=== PATIENT | female | born 1960 | race African-American/Black ===

== ENCOUNTER 2022-09-04 12:12 | Outpatient (REF) | payer BC, SELFPAY ==
[2022-09-04 14:47] LABS: Estimated Average Glucose 117 mg/dL; Hemoglobin A1c % 5.7 %
== END 2022-09-04 12:13 | disposition home or self-care (01) ==
LOC: HO.HMGCLDS 12:12
PROVIDERS: PCP Internal Medicine; Visit Provider Internal Medicine
DX: R73.09 Other abnormal glucose (principal)
CPT/HCPCS: 36415; 83036

== ENCOUNTER 2022-11-10 13:06 | Outpatient (REF) | payer OTHER, BC, SELFPAY ==
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
== END 2022-11-10 13:07 | disposition home or self-care (01) ==
LOC: HO.HMGCX 13:06
PROVIDERS: PCP Internal Medicine; Visit Provider Internal Medicine
DX: M54.50 Low back pain, unspecified (principal)
CPT/HCPCS: 72100

== ENCOUNTER 2022-11-14 13:11 | Outpatient (REF) | payer OTHER, SELFPAY ==
--- NOTE | ~2022-11-14 | XR_ITS ---
EXAMINATION: XR SHOULDER, LEFT CLINICAL INFORMATION: Pain COMPARISON: None available. TECHNIQUE: AP external rotation, Grashey, scapular Y, and axillary views of the left shoulder. FINDINGS: There is minimal reduction left AC joint space with inferior acromial spurring. The glenohumeral joint space is normal. No visible acute fracture, dislocation or subluxation seen. XR/XR shoulder LT min 2V IMPRESSION: Mild degenerative changes left AC joint with inferior acromial spurring. No visible acute fracture or dislocation seen.
== END 2022-11-14 13:12 | disposition home or self-care (01) ==
LOC: HO.HMGCX 13:11
PROVIDERS: PCP Internal Medicine; Visit Provider Internal Medicine
DX: M25.512 Pain in left shoulder (principal)
CPT/HCPCS: 73030

== ENCOUNTER 2022-12-03 07:50 | Outpatient (REF) | payer BC, SELFPAY ==
[2022-12-03 12:16] LABS: Estimated Average Glucose 108 mg/dL; Hemoglobin A1c % 5.4 %
== END 2022-12-03 07:51 | disposition home or self-care (01) ==
LOC: HO.HMGCLDS 07:50
PROVIDERS: PCP Internal Medicine; Visit Provider Internal Medicine
DX: R73.9 Hyperglycemia, unspecified (principal)
CPT/HCPCS: 36415; 83036

== ENCOUNTER 2022-12-26 08:00 | Outpatient (RCR) | payer OTHER, BC, SELFPAY | END 2022-12-29 07:10 | disposition home or self-care (01) | LOC: HO.PTCHIC 08:00 | PROVIDERS: PCP Internal Medicine; Visit Provider Internal Medicine | DX: M54.50 Low back pain, unspecified (principal) | CPT/HCPCS: 97014; 97110; 97112; 97162 ==

== ENCOUNTER 2023-02-23 08:00 | Outpatient (RCR) | payer OTHER, BC, SELFPAY | END 2023-02-23 14:23 | disposition home or self-care (01) | LOC: HO.PTCHIC 08:00 | PROVIDERS: PCP Internal Medicine; Visit Provider Internal Medicine | DX: M54.50 Low back pain, unspecified (principal) | CPT/HCPCS: 97110; 97162; 97530 ==

== ENCOUNTER 2023-02-26 13:02 | Outpatient (REF) | payer BC, SELFPAY ==
[2023-02-26 16:43] LABS: Blood Urea Nitrogen 19 mg/dL (9-16); Estimated Glomerular Filt Rate > 60; Potassium 3.5 mmol/L (3.3-5.1)
== END 2023-02-26 13:03 | disposition home or self-care (01) ==
LOC: HO.HMGCLDS 13:02
PROVIDERS: PCP Internal Medicine; Visit Provider Internal Medicine
DX: R53.83 Other fatigue (principal); R59.0 Localized enlarged lymph nodes
CPT/HCPCS: 36415; 82565; 84132; 84520

== ENCOUNTER 2023-03-06 09:51 | Outpatient (REF) | payer BC, SELFPAY ==
--- NOTE | ~2023-03-06 | CT_ITS ---
EXAMINATION: CT ABDOMEN AND PELVIS WITH CONTRAST CLINICAL INFORMATION: Enlarged inguinal lymph nodes. COMPARISON: None available. TECHNIQUE: Multidetector volumetric images were obtained from the superior aspect of the liver through the pubic symphysis following administration 85 mL of Omnipaque 350 intravenous contrast. Sagittal and coronal reformatted images were obtained on the technologist's workstation. Oral contrast: Yes This CT examination was performed using dose optimization techniques as appropriate, variously including the following: *Automated exposure control *Adjustment of mA and/or kV according to patient size (this includes techniques or standardized protocols for targeted exams where dose is matched to indication/reason for exam; i.e. extremities or head) *Use of iterative reconstruction technique DLP: 151 mGy-cm FINDINGS: LUNG BASES: The visualized lung bases are unremarkable. LIVER, GALLBLADDER, AND BILIARY TREE: Focal steatosis along the falciform. No biliary ductal dilatation. The gallbladder is unremarkable with no evidence of radiopaque gallstones, gallbladder wall thickening, or obvious pericholecystic inflammatory changes. PANCREAS: No discrete mass. No ductal dilatation. SPLEEN: Normal. ADRENAL GLANDS: No adrenal mass. KIDNEYS AND URETERS: Symmetric nephrograms. 1.1 cm endophytic lower attenuation lesion in the anterior mid right kidney measures 29 Hounsfield units. This is considered Bosniak 2. No follow-up imaging is recommended. No nephrolithiasis or hydronephrosis BLADDER: Unremarkable. GASTROINTESTINAL TRACT: The bowel is normal in caliber. No focal bowel wall thickening. ABDOMINAL WALL: No significant hernia is appreciated. LYMPH NODES: No enlarged lymph nodes are seen. Specifically, no enlarged inguinal lymph nodes. VASCULAR: Normal caliber abdominal aorta. Minimal atherosclerotic disease. PELVIC VISCERA: Fibroid uterus. OSSEOUS STRUCTURES: Postoperative changes L4-S1. CT/CT abdomen pelvis w IV con IMPRESSION: No lymphadenopathy. Fleischner guidelines were followed.
[2023-03-06] MEDS: iohexoL 350 MG/ML 100 ML INFUS..BTL 85 ML IV (12:57)
== END 2023-03-06 09:52 | disposition home or self-care (01) ==
LOC: HO.CT 09:51
PROVIDERS: PCP Internal Medicine; Visit Provider Internal Medicine
DX: R59.0 Localized enlarged lymph nodes (principal)
CPT/HCPCS: 74177; Q9967

== ENCOUNTER 2023-03-26 08:00 | Outpatient (REF) | payer BC, OTHER, SELFPAY | END 2023-03-26 08:01 | disposition home or self-care (01) | LOC: HO.MRI 08:00 | PROVIDERS: PCP Internal Medicine; Visit Provider Internal Medicine | DX: Z13.89 Encounter for screening for other disorder (principal) ==

== ENCOUNTER 2023-04-24 13:45 | Outpatient (REF) | payer BC, SELFPAY | END 2023-04-24 13:46 | disposition home or self-care (01) | LOC: HO.MRI 13:45 | PROVIDERS: PCP Internal Medicine; Visit Provider Internal Medicine | DX: M54.16 Radiculopathy, lumbar region (principal) | CPT/HCPCS: 72148 ==

== ENCOUNTER 2023-05-10 14:17 | Emergency (ER) | payer BC, SELFPAY ==
[2023-05-10 14:31] VITALS: BP 132/77; PULSE 64; RESP 16; TEMP 36.8; O2SAT 97; BMI 19.2
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
[2023-05-10 14:38] VITALS: BP 130/70; PULSE 82; O2SAT 97
[2023-05-10] MEDS: Cyclobenzaprine HCl 10 MG TABLET PO (15:42)
[2023-05-10] MEDS: Lidocaine 4 % Patch ADH..PATCH 1 PATCH TRANSDERMA (15:43)
--- NOTE | 2023-05-10 17:00 | PC.NURSE ---
pt state to RN she does not want to have a PA electric motor assembler talk with her and she wants a doctor. she stated to RN that PA's are glorified nurses. per pt request spoke w attending MD. pt declined tylenol offer after audibly raising voice when RN offered it and told to leave. breathing w/o issue. +CMS. earlier pt declined toradol and had RN add NSAIDs adverse rxn to computer.
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
--- NOTE | 2023-05-10 18:20 | PC.NURSE ---
pt changed and purewick in place. suzanna restrepo at bedside w pt/rn.
[2023-05-10 18:48] VITALS: BP 128/75; PULSE 79; RESP 18; TEMP 36.8; O2SAT 99
--- NOTE | 2023-05-10 19:09 | PC.NURSE ---
pt changed over to hospital attire, assisted CORINNA Akhtar with placement of purewick. with pt consent, this nurse cut pt nylons off and placed in belongings bag, with sweater dress, belt and jacket. pt was repositioned in bed for comfort- warm blankets given, plan is for PT/CM eval in AM. call alvarado within reach. care ongoing
--- NOTE | 2023-05-10 19:46 | PC.NURSE ---
nurse called to room - pt sts that it has been four hours since her last pain med- T3 given at 1736- WHITLEY ochoa notified via [employer] connect
--- NOTE | 2023-05-10 19:56 | PC.NURSE ---
pt continues to ring call alvarado for pain medication- WHITLEY ochoa aware, no new orders at this time.
--- NOTE | 2023-05-10 20:00 | PC.NURSE ---
Oxycodone 5mg ordered 1954- admin by CORINNA Akhtar
[2023-05-10] MEDS: oxyCODONE HCl Immed Release 5 MG TABLET PO (20:01)
--- NOTE | 2023-05-10 20:11 | PC.NURSE ---
pt declined oxycodone stating it gives her hallucinations. rosanna bradley rn. colin ARREAGA messaged inquiring about pain med alts. in process of finding heat pack to offer for pain at this time. pt talks full sentences. +[facility].
--- NOTE | 2023-05-10 20:47 | PC.NURSE ---
pt declined tramadol 50mg. provider aware. no new orders at this time. offered heat pack
--- NOTE | 2023-05-10 21:02 | PC.NURSE ---
pt declined tramadol again. pa o'gene aware
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
--- NOTE | 2023-05-11 01:50 | PC.NURSE ---
per weigh and charge worker to be transferred to overflow unit. this rn to pt bedside to inform of plan. lights dimmed and pt noted to be sleeping. this rn made pt aware of transfer plan to overflow unit. pt calm and cooperative and agreeable to plan.
--- NOTE | 2023-05-11 02:15 | PC.NURSE ---
this rn grve rn to rn report to overflow rn. pt calm and cooperative with this rn when explaining transfer to overflow unit. clinic scheduler to bedside to perform belongings list and bring pt to overflow unit. pt refusing to sign belongings list, pt states belongings list contains incorrect diagnosis. pt states that will not sign with belongings list stating hip pain instead of correct diagnosis of groin pain. pt on phone with witness stating it doesn't matter if my belongings get lost but i will not sign something with incorrect documentation . this rn had second rn witness sign pt refusal to sign. corn detasseler machine operator made aware
--- NOTE | 2023-05-11 02:18 | PC.NURSE ---
buffing and sueding machine operator made this rn aware that upon informing pt of bed assignment overflow bed 1, buffing and sueding machine operator informed pt that room 1 had a door that allowed for pt privacy and sleep. per buffing and sueding machine operator pt stated so you're putting me in isolation . this rn made furnace charger and overflow rn aware of pt statement to buffing and sueding machine operator
--- NOTE | 2023-05-11 02:46 | PC.NURSE ---
This RN assumed care of the pt at approx 0230. Pt was transferred to hospital stretcher via drawsheet and extra pillows and sheets were removed. Pt was given a new purewick and placement was corrected. Pt presents A&Ox4, GCS 15, calm and cooperative. She remained on the cell phone throughout my introduction, but reported 7/10 pain, stating 10 isn't even a number for me, it jumps right to 20. Pt received pain medication prior to arrival at [facility], can receive the next dose after 6AM. Pt complaining that the room is too cold. Pt is resting on her right side comfortably. Call alvarado within reach, ice chips given, per pt request.
[2023-05-11 06:12] VITALS: RESP 18
--- NOTE | 2023-05-11 09:16 | PC.NURSE ---
alert and oriented, respirations even and unlabored. bed change complete, purewick in place. pt states she is unable to stand or use bedpan at this time due to the pain. medicated per the MAR with prn pain medication, breakfast tray ordered, call alvaardo within reach.
[2023-05-11 10:55] VITALS: BP 128/75; PULSE 79; O2SAT 99
--- NOTE | 2023-05-11 12:52 | PC.NURSE ---
physical therapy met with patient, to attempt to ambulate to bathroom with walker at some point today. patient was able to stand and take some steps utilizing the walker, will ring the call alvarado when she is ready to try.
--- NOTE | 2023-05-11 13:44 | PC.NURSE ---
ambulated with slow steady gait using walker to the bathroom
[2023-05-11] MEDS: Lidocaine 4 % Patch ADH..PATCH 1 PATCH TRANSDERMA (13:48)
[2023-05-11 14:35] VITALS: BP 146/70; PULSE 62; RESP 14; TEMP 36.8; O2SAT 97
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
--- NOTE | 2023-05-11 17:42 | PC.NURSE ---
patient complaining of 10/10 pain, requesting to receive something more for her pain. provider aware.
--- NOTE | 2023-05-11 18:08 | MHC.EDTECH ---
THIS PCT ASSUMED CARE OF PT AT 1500 ,PATIENT ATE 100 % OF DINNER DRANK 360 ML FLUIDS .
--- NOTE | 2023-05-11 18:44 | PC.NURSE ---
pt offered 5mg diazepam, patient proceeded to research the medication and refused stating that she is not anxious at this time and is unsure of how she will react to the medication.
[2023-05-11] MEDS: Cyclobenzaprine HCl 10 MG TABLET PO (20:24)
[2023-05-11 20:46] LABS: COVID-19 Test Negative (Negative); IDNOW Serial# 55D5AD1C
[2023-05-11 20:50] VITALS: BP 174/86; PULSE 102; RESP 16; TEMP 36.2; O2SAT 96
--- NOTE | 2023-05-11 21:51 | PC.NURSE ---
pt requesting to see the security guard supervisor and patient relations
[2023-05-11 23:33] VITALS: BP 148/86; PULSE 112; RESP 16; O2SAT 98
--- NOTE | 2023-05-11 23:38 | PC.NURSE ---
pt oob to the bed to use the commode, pt found sitting on the bed reported she was unable to get back to bed with assistance
--- NOTE | 2023-05-12 00:33 | PC.NURSE ---
nursing supervisor yard in with pt
[2023-05-12] MEDS: Cyclobenzaprine HCl 10 MG TABLET PO ×3 (02:13→18:41)
--- NOTE | 2023-05-12 02:30 | MHC.EDTECH ---
Pt requested [place] to be placed instead of using bedside commteresita ,CORINNA Peters aware .
[2023-05-12 06:00] VITALS: BP 145/91; PULSE 67; RESP 16; TEMP 36.6; O2SAT 98
[2023-05-12 08:26] VITALS: BP 134/84; PULSE 67; RESP 14; TEMP 37.1; O2SAT 96
--- NOTE | 2023-05-12 09:41 | MHC.CM.ED ---
Patient remains in ER overflow. Received voicemail from patient that [facility] is 1st choice. Referral made to [facility] via [facility]. Continue to monitor for d/c needs.
[2023-05-12] MEDS: Lidocaine 4 % Patch ADH..PATCH 1 PATCH TRANSDERMA (10:39)
--- NOTE | 2023-05-12 12:14 | PHA.MEDREC ---
Pharmacy Consult ? Medication Reconciliation Pharmacy has reviewed the medication reconciliation completed by nursing.
--- NOTE | 2023-05-12 13:48 | PC.NURSE ---
Patient states she doesn't take losartan at home notified Sugey ARREAGA. Blood pressure has been WNL as long as she's not in pain.
[2023-05-12 14:00] VITALS: BP 133/69; PULSE 83; RESP 14; TEMP 36.7; O2SAT 98
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
[2023-05-12 21:04] VITALS: BP 155/86; PULSE 95; RESP 16; TEMP 36.6; O2SAT 97
[2023-05-12] MEDS: Acetaminophen 325 MG TABLET 975 MG PO (22:02)
[2023-05-12] MEDS: carisoprodoL 350 MG TABLET PO (22:03)
[2023-05-13 05:39] VITALS: BP 105/71; PULSE 80; RESP 16; TEMP 36.2; O2SAT 96
--- NOTE | 2023-05-13 08:23 | PC.NURSE ---
pt refused losartan. I dont' take this med. I don't know why you have it here .
[2023-05-13] MEDS: Cyclobenzaprine HCl 10 MG TABLET PO (08:24)
[2023-05-13] MEDS: Lidocaine 4 % Patch ADH..PATCH 1 PATCH TRANSDERMA (08:25)
[2023-05-13 09:00] VITALS: BP 116/78; PULSE 103; RESP 20; TEMP 36.1; O2SAT 97
--- NOTE | 2023-05-13 09:02 | PC.NURSE ---
Medicated for pain, Attempted AM care: pt refusing at this time. i'm talking to my friend john alvarado in reach.
--- NOTE | 2023-05-13 09:12 | MHC.CM.ED ---
Addendum entered by Hanna Leach 05/13/23 11:41: Dr Perdue met with patient. Patient is declining STR at this time and will find her own transportation. Original Note: Patient remains in ER overflow. Last evening patient requested to be transferred to [facility] so Dr Williamson can perform surgery. T/W spoke with Dr Williamson's office. Patient has her 1st appointment scheduled for 05/15 at 1pm.There are no notes in her chart at Dr Williamson's office regarding communication with transferring to [facility] or surgery. Lizet ARREAGA and Dr Perdue made aware. Dr Perdue will meet and speak with patient in regards to discharge planning. However, Dr Perdue does not feel a transfer to [facility] would be appropriate. Continue to monitor for d/c needs.
--- NOTE | 2023-05-13 09:47 | PC.NURSE ---
Addendum entered by Maday Nolasco 05/13/23 10:02: Notified MLP incharge of care: Pt is refusing to see MLPs and Dr. Nette colon be along to eval. Notification occurred via tiger text. Original Note: Pt reporting to Float RN: that she now having numbness in her rt leg and wishing to speak to an income tax administrator before [She] becomes paralyzed. refusing position change in bed.
--- NOTE | 2023-05-13 10:08 | PC.NURSE ---
Per Amalia from patient expirence, pt self repositioned from right side lying to on back with knees up. Speaking on phone, no acute distress.
--- NOTE | 2023-05-13 10:43 | PC.NURSE ---
follow up tiger text sent to Dr. Perdue that the pt was reporting her pain is unrelieved by PRNs (tylenol, lidocaine, flexeril.) she is refusing baclofen because it makes her nauseous. She was given Soma last night with good effect. The patient was on the phone with a reported neuro doctor and she requested that i take her personal phone and bring it to the ED attending so he may speak directly to her neurologist on her cell phone. I informed her that the provider she was speaking to would have to contact the ED through the main line and speak to the doctor directly.
--- NOTE | 2023-05-13 10:49 | PC.NURSE ---
ED attending to bedside at this time
--- NOTE | 2023-05-13 10:56 | PC.NURSE ---
Per ED attending: Plan at this time is for po medication and d/c to ride for her to make her neuro appointment.
[2023-05-13] MEDS: Gabapentin 100 MG CAPSULE PO (11:16)
--- NOTE | 2023-05-13 11:37 | PC.NURSE ---
Pt adamently refused to sign d/c paperwork, waving me away when asking for a signature. Pt refusing tramadol. pt verbalized d/c instructions with ERT in room as witness. no signature.
== END 2023-05-13 11:42 | disposition home or self-care (01) ==
PROVIDERS: Physician Assistant Medical; Emergency Provider Internal Medicine
DX: M54.16 Radiculopathy, lumbar region (principal); G89.29 Other chronic pain; M54.50 Low back pain, unspecified; Z11.52 Encounter for screening for COVID-19
CPT/HCPCS: 87635; 97162; 99285